=== PATIENT | male | born 1995 | race Caucasian/White ===

== ENCOUNTER 2017-01-14 15:14 | Emergency (ER) | payer OTHER ==
[2017-01-14 15:16] VITALS: BP 150/71; PULSE 116; RESP 19; TEMP 99.3; O2SAT 100
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
[2017-01-14] MEDS ORDERED: ACETAMINOPHEN 500 MG CPLT PO ONE (15:45)
[2017-01-14] MEDS ORDERED: IBUPROFEN 800 MG TAB PO ONE (15:45)
[2017-01-14] MEDS ORDERED: ORPH100T99 PO (16:06)
[2017-01-14] MEDS ORDERED: IBUP800T23 PO (16:06)
[2017-01-14] MEDS ORDERED: NON-500T13 PO (16:06)
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
== END 2017-01-14 16:39 | disposition home or self-care (01) ==
LOC: NEPK 15:14
DX: S40.012A Contusion of left shoulder, initial encounter (principal); V43.52XA Car driver injured in collision with other type car in traffic accident, initial encounter; W22.11XA Striking against or struck by driver side automobile airbag, initial encounter
CPT/HCPCS: 73030; 99283